=== PATIENT | male | born 1975 | race Caucasian/White ===

== ENCOUNTER 2018-12-16 12:01 | Emergency (ER) | payer OTHER ==
[2018-12-16 12:19] VITALS: BP 117/71
--- NOTE | 2018-12-16 12:24 | UC ---
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 He states this is a chronic problem which flares up from time to time and he is requesting a refill of fluconazole until he can see his rn teacher. - History of Current Complaint Chief Complaint: UCSkin Time Seen by Provider: 12/16/18 12:13 Stated Complaint: BILATERAL HAND Hx Obtained From: Patient Onset/Duration: Gradual Onset Skin Exposure Onset/Duration: Days Ago Timing: Constant Onset Severity: Mild Current Severity: Moderate Pain Intensity: 0 Location: Hand (Right), Hand (Left) Character: Pruritus, Redness Aggravating Factor(s): Other - Patient states he gets this worse when he wears gloves while he is working as a taxidermist. Alleviating Factor(s): Other - Patient states he usually has to take fluconazole 400 mg daily once a week for 4 weeks. Associated Signs & Symptoms: Positive: Rash - Allergy/Home Medications Allergies/Adverse Reactions: Allergies Allergy/AdvReac Type Severity Reaction Status Date / Time No Known Allergies Allergy Verified 12/16/18 12:19 PMH/Surg Hx/FS Hx/Imm Hx Previously Healthy: Yes - Surgical History Surgical History: None - Family History Known Family History: Positive: Non-Contributory - Social History Occupation: Employed Full-time Alcohol Use: None Substance Use Type: None Smoking Status (MU): Heavy Every Day Tobacco Smoker Amount Used/How Often: 1/2 ppd Length of Time of Smoking/Using Tobacco: 24 yr Review of Systems All Other Systems Reviewed And Are Negative: Yes Skin: Positive: Rash - Rash on both hands. Is Patient Immunocompromised?: No Physical Exam Triage Information Reviewed: Yes Appearance: Well-Appearing, No Pain Distress, Well-Nourished Vital Signs: Initial Vital Signs Temp 99.0 F 12/16/18 12:12 Pulse 86 12/16/18 12:12 Resp 18 12/16/18 12:12 BP 117/71 12/16/18 12:12 Pulse Ox 98 12/16/18 12:12 Vital Signs Reviewed: Yes Skin: Positive: Rashes - Patient has a rash on both hands with some mild peeling of skin, itching. He states this is a normal rash he gets when he wears gloves for prolonged periods of time while working with [email or web address]. Course/Dx - Course Course Of Treatment: Patient was given a refill for his medications and is to keep his appointment with his rn teacher. - Diagnoses Provider Diagnosis: Rash and nonspecific skin eruption Discharge - Sign-Out/Discharge Documenting (check all that apply): Patient Departure All imaging exams completed and their final reports reviewed: No Studies - Discharge Plan Condition: Fair Disposition: HOME Prescriptions: Fluconazole 100 MG TAB* [Diflucan 100 MG TAB*] 400 mg PO WEEKLY 30 Days #16 tab Patient Education Materials: Antifungals (On the skin) Referrals: Ranjana Rodas [Primary Care Provider] - Additional Instructions: Follow up with your rn teacher as scheduled. Avoid wearing gloves as much as possible and avoid exposure to chemicals - Billing Disposition and Condition Condition: FAIR Disposition: Home
== END 2018-12-16 12:38 | disposition home or self-care (01) ==
LOC: UCCORT 12:01
DX: R21 Rash and other nonspecific skin eruption (principal); Z76.0 Encounter for issue of repeat prescription; F17.200 Nicotine dependence, unspecified, uncomplicated
CPT/HCPCS: 99202; G0463